=== PATIENT | male | born 1980 | race Caucasian/White ===

== ENCOUNTER 2025-01-10 22:27 | Emergency (ER) | payer SELFPAY ==
[2025-01-10 22:39] VITALS: BP 153/94
[2025-01-10 23:02] VITALS: BP 150/82; BMI 25.5
--- NOTE | 2025-01-10 23:17 | ED.GENMED ---
History of Present Illness
General
Chief Complaint: Crisis Evaluation
Source: patient
Exam Limitations: none
Time Seen by Provider: 01/10/25 23:00
Nursing documentation reviewed up to this point in time: agreed with
History of Present Illness
History of Present Illness:
44-year-old homeless unemployed male depression anxiety suicidal thoughts for some time prior cocaine use while living in [place], no drugs or alcohol recently, no hallucinations brought in by his sister who is supportive no drug overdose
Past History
Past History
ED Past Medical History: Psychiatric
Social History
Tobacco: Non-smoker
Alcohol: None
Drug: Former user
Personal: Single
Living: homeless
Employment: Not employed
Review of Systems
Review of Systems
All Other Systems: Not applicable
Cardiac: Reports chest pain
Musculoskeletal: Reports muscle pain
Psychiatric: Reports depression, anxiety and suicidal
Phy Exam
Physical Exam
Physical Exam:
Physical Exam
General: no apparent distress, not acutely ill
Neck: Lips are dry
Heart: Regular
Lungs: no acute respiratory distress. clear bilaterally
Neuro: alert and oriented. no focal neurological deficits
Skin: no rash
Psychiatric: Cooperative flat affect admits to suicidal
Extremities: no edema.
Course
Orders/Labs/Results
Orders:
Orders
01/10/25 22:46
1:1 Observation - Suicide/ Violent Behavior As Directed
01/10/25 22:47
EKG [Electrocardiogram (*1)] Urgent
Reason for Study: Chest Pain
01/10/25 22:48
EKG- Treatment ONCE
01/10/25 23:13
Complete Blood Count/With Diff Urgent
Comprehensive Metabolic Panel Urgent
01/10/25 23:14
Urine Drug Abuse Screen Urgent
0.9% Sodium Chloride 1000 ml [Nss] 1,000 ml IV BOLUS
Vital Signs
Initial and Last Documented VS:
Initial Vital Signs
Temp Pulse Resp BP Pulse Ox
97.8 F 83 16 153/94 100
01/10/25 22:39 01/10/25 22:39 01/10/25 22:39 01/10/25 22:39 01/10/25 22:39
Last Documented Vital Signs
Temp Pulse Resp BP Pulse Ox
97.8 F 80 16 150/82 99
01/10/25 22:39 01/10/25 23:02 01/10/25 23:02 01/10/25 23:02 01/10/25 23:02
MDM/Problems Addressed
Differential Diagnosis Includes:
Depression anxiety suicidal thoughts no active drug use
MDM/Problems Addressed:
Depression anxiety
Chronic conditions affecting care: Psychiatric illness
Acute Exacerbation and/or Progression of Chronic Illness: Psychiatric illness
*Pulse Oximetry
SaO2: 99
Oxygen Mode of Delivery: Room air
Patient hypoxic: no
*Critical Care Note
Total Time (30-74mins, 75-104mins- exclusive of procedures): Not Applicable
Update Note
Update Note:
Plan will be screening blood work EKG IV fluids crisis evaluation
ED Attending Note
-
Portions of this chart may have been created with voice recognition software.� Occasional wrong word or��sound alike� substitutions may have occurred due to the inherent limitations of voice recognition software.
Discharge Plan
Interventions
Interventions:
*Risk Screen - Suicide Last Done: 01/10/25 22:39
*General Assessment Last Done: 01/10/25 23:02
*Neglect/Abuse Screening Last Done: 01/10/25 23:02
*ED- Fall Risk Assessment Last Done: 01/10/25 23:02
*ED COVID-19 Vaccine History Last Done: 01/10/25 23:02
ED-Psychological Assessment Last Done: 01/10/25 23:02
Discharge Date and Time
Print Language: CHINESE
[2025-01-10] MEDS: NSS 1000 IV (23:29)
[2025-01-10 23:36] LABS: Hematocrit 39.9 % (39.0-52.0); Hemoglobin 13.7 g/dL (13.0-18.0); Mean Corp Hgb Conc. 34.3 g/dL (33.0-37.0); Mean Corpuscular Volume 90.5 fL (80.0-94.0); Nucleated Red Blood Cells % 0 % (-); Platelet Count 298 10^3/uL (130-400); Red Cell Dist. Width 12.7 % (11.5-14.5)
[2025-01-10 23:53] LABS: ALT (SGPT) 18 U/L (0-50); AST (SGOT) 26 U/L (17-59); Albumin 4.7 g/dl (3.5-5.0); Alkaline Phosphatase 52 U/L (38-126); Blood Urea Nitrogen 11 mg/dl (9-20); Calcium 9.5 mg/dl (8.4-10.2); Carbon Dioxide 29 mmol/L (22-30); Chloride 103 mmol/L (98-107); Estimated Creatinine Clearance 119 ml/min; Glucose 87 mg/dl (70-99); Potassium 3.7 mmol/L (3.5-5.1); Sodium 138 mmol/L (135-145); Total Protein 7.8 g/dl (6.3-8.2); eGFR > 60.00
[2025-01-11] MEDS: NICODERM TRANSDERMAL 21 MG TRANSDERM (02:02)
[2025-01-11 07:41] VITALS: BP 131/82
== END 2025-01-11 11:33 ==
LOC: EMR 22:27
PROVIDERS: EMERGENCY PHYSICIAN Emergency Medicine
DX: R45.851 Suicidal ideations (principal); F41.8 Other specified anxiety disorders
CPT/HCPCS: 99285; 80053; 80306; 85025; 93005